=== PATIENT | female | born 1945 | race Caucasian/White ===

== ENCOUNTER 2022-12-09 18:31 | Observation (INO) ==
[2022-12-09] MEDS ORDERED: ASPIRIN 81 MG CHEW PO STA (18:44)
[2022-12-09 18:59] LABS: Basophils # (auto) 0.07 K/uL (0-0.2); Basophils % (auto) 0.8 %; Eosinophils # (auto) 0.26 K/uL (0-0.50); Eosinophils % (auto) 3.1 %; Hematocrit (blood only) 37.9 % (37.0-47.0); Hemoglobin 13.1 g/dl (12.0-16.0); Immature Granulocytes # (auto) 0.02 K/uL (0.01-0.20); Immature Granulocytes % (auto) 0.2 %; Lymphocytes # (auto) 2.47 K/uL (1.2-3.4); Lymphocytes % (auto) 29.4 %; Mean Corpuscular Hemoglobin 30.9 pg (25.0-34.0); Mean Corpuscular Hgb Conc 34.6 g/dL (32.0-36.0); Mean Corpuscular Volume 89.4 fL (80.0-100.0); Mean Platelet Volume 10.8 fL (9.4-12.4); Monocytes # (auto) 0.69 K/uL (0.11-0.59); Monocytes % (auto) 8.2 %; Neutrophils % (auto) 58.3 %; Platelet Count 220 K/uL (130-400); RDW Coefficient of Variation 14.4 % (11.5-14.5); RDW Standard Deviation 46.2 fL (36.4-46.3); Red Blood Count 4.24 M/uL (4.20-5.40); White Blood Count 8.41 K/ul (4.8-10.8)
--- NOTE | 2022-12-09 18:59 | Emergency Department Note ---
Impression & Plan Chest pain, Weakness ED Provider Note Provider: Edvin Bravo MD DATE OF SERVICE: 12/09/2022 CHIEF COMPLAINT: Chest discomfort HISTORY OF PRESENT ILLNESS: Patient is a 77-year-old female history of sick sinus syndrome status post dual pacemaker insertion, renovascular hypertension status post renal artery stent 2005, ankylosing spondylitis is, and hypothyroidism presenting here today with the onset around 530 at home while sitting of central chest discomfort and pain. Reports it felt like a charley horse. Maybe little bit of tightness at the base of her throat. Denies any other radiation of pain or nausea or vomiting. Denies shortness of breath. [place] warm but was not sweaty. States he had a brief episode like this at [place] time. Denies any recent exertional chest pain or fatigue symptoms. States she took an extra 81 mg aspirin in addition to the 81 mg aspirin she norm ally took. Given severity of symptoms came here for evaluation. States symptoms have resolved at this point but she feels somewhat washed out and weak. Denies lightheadedness or palpitations.She reports she did have pacemaker interrogation about a month ago and has a couple very brief episodes of atrial fibrillation is not on other anticoagulation. Denies numbness or focal weakness. Again denies active chest pain at this point. Denies a history of stents. PAST MEDICAL HISTORY: As noted above MEDICATIONS: Reviewed home medications include 81 mg aspirin FMH: Mother in her 90s had heart disease SOCIAL HISTORY: Non-smoker, PHYSICAL EXAM: GENERAL: alert and oriented in no acute distress on stretcher slightly fatigued appearing. Head: normocephalic and atraumatic EYES: No injection, discharge or icterus. NECK: Trachea midline. ENT: Mucous membranes pink and moist. LUNGS: Airway patent. No retractions. Breath sounds clear with good air entry bilaterally. HEART: Regular rate and rhythm. No chest wall tenderness ABDOMEN: Soft and non-tender, without guarding or rebound. SKIN: Acyanotic, warm, dry, without rashes EXTREMITIES: Without tenderness with mild bilateral pedal edema. Some varicosities noted without significant erythema NEUROLOGICAL: No focal deficits. No aphasia. No facial droop or slurred speech. Ambulatory. EK bpm atrially paced rhythm with a right bundle branch block and left anterior fascicular block. No PVC noted. No acute ST segment elevation. QTc 464. No priors for comparison CONTINUOUS CARDIAC MONITORING: was ordered and showed a heart rate of 60s-90s bpm in atrially paced rhythm Patient's laboratory studies and imaging reviewed. Differential includes Cardiac ischemia, aortic dissection, pulmonary embolism, pneumothorax, pneumonia, pericarditis, myocarditis, esophageal rupture, GERD, cholecystitis, pancreatitis, musculoskeletal, as well as other pathologies. IMPRESSION/MEDICAL DECISION MAKING: No active chest discomfort. EKG obtained but no priors available for comparison in our system or recently in the [facility] system. Previously had care at [place] but transferred to the [facility] cardiology system a year or 2 ago. Reviewed the last note from April. Not having recent exertional symptoms. The rest had symptoms today. Do question given her risk factors and description of the symptoms at this cardiac in nature. No STEMI on EKG today. Given 2 additional aspirin so she received full dose for today. Some chronic varicose veins and slight leg swelling but doubt this represents VTE/PE/aortic dis section. Benign abdomen and doubt acute intra-abdominal pathology. Will interrogate the pacemaker but denies palpitations symptoms and lower likelihood that this was a episode of significant arrhythmia. Records indicate that she had a normal coronary angiogram in 2008 and she states many years ago she had a stress test. Reports she is scheduled follow-up with cardiology next month. Heart score is elevated moderate risk. Feeling a little bit improved on reevaluation. Discussed with her risks and benefits and recommended further observation which she was agreeable to. Hospitalist contacted. DIAGNOSIS: Chest pain, weakness DISPOSITION: Hospitalist will evaluate Patient was agreeable with this plan. Past Med/Surg History Medical History Cardiac pacemaker Cervical cancer H/O varicose veins History of cervical cancer Hot flashes, menopausal Hot flashes, menopausal Hypertension Mitral valve regurgitation Osteoarthritis of midtarsal joint of right foot SSS (sick sinus syndrome) Varicose veins of both legs with edema Surgical History H/O knee surgery H/O laparoscopy Diagnostic H/O rectocele repair H/O: hysterectomy History of ankle surgery History of tubal ligation S/P placement of cardiac pacemaker Family History Father Colorectal cancer Brother Lung cancer Prostate cancer Uncle Lung cancer Paternal Other Hypertension Denies family history of Ovarian cancer Breast cancer Social History Smoking Status: Unknown if ever smoked Do You Dip or Chew Tobacco: No; Hx Alcohol Use: No Hx Substance Use: No Preferred Language: Croatian Feels Safe at Home: Yes Allergies Allergies Allergy/AdvReac Type Severity Reaction Status Date / Time hydrochlorothiazide Allergy Unknown Verified 12/09/22 19:15 metoprolol Allergy Unknown Verified 12/09/22 19:15 naproxen [From Naprosyn] Allergy Unknown Verified 12/09/22 19:15 Home Meds Home Medications Medication Instructions Recorded Confirmed calcium carbonate 600 mg-vitamin 1 cap PO DAILY 04/28/19 12/09/22 D3 5 mcg (200 unit) capsule multivit with 1 tab PO DAILY 04/28/19 12/09/22 [id number] 8 mg iron-400 mcg-300 mcg tablet (Centrum Silver Women) levothyroxine 25 mcg tablet 25 mcg PO DAILY 06/13/19 12/09/22 (Synthroid) amlodipine 5 mg tablet 5 mg PO DAILY 10/31/20 12/09/22 carvedilol 12.5 mg tablet 12.5 mg PO BID 10/31/20 12/09/22 aspirin 81 mg tablet,delayed 81 mg PO DAILY 12/09/22 12/09/22 release celecoxib 200 mg capsule 200 mg PO DAILY PRN Pain 12/09/22 12/09/22 lactobacillus combination no.4 3 0 mmu cells PO DAILY 12/09/22 12/09/22 billion cell capsule (Probiotic) Results & Data (ED) Vital Signs Vital Signs - 24 hr 12/09/22 18:35 12/09/22 18:35 12/09/22 18:43 Temperature 36.6 C Temperature Source Oral Pulse Rate 72 Pulse Rate from SpO2 Sensor Pulse Rhythm Regular Pulse Strength Normal Respiratory Rate 20 Respiratory Effort / Characteristics Non-Labored Spontaneous Non-Labored Spontaneous Respiratory Depth Normal Normal Respiratory Pattern Regular Blood Pressure 160/90 H Blood Pressure Mean 113 Blood Pressure Position Sitting Pulse Oximetry 95 Oxygen Delivery Method Room Air Room Air Sepsis Recent Fever Within 48 Hours No Sepsis New/Unexplained Change in Mental Status No Sepsis Action Taken by Nursing No Action Required 12/09/22 18:54 12/09/22 18:52 12/09/22 19:00 Temperature Temperature Source Pulse Rate 75 67 69 Pulse Rate from SpO2 Sensor 67 Pulse Rhythm Pulse Strength Respiratory Rate 21 22 Respiratory Effort / Characteristics Respiratory Depth Respiratory Pattern Blood Pressure Blood Pressure Mean Blood Pressure Position Pulse Oximetry 96 Oxygen Delivery Method Sepsis Recent Fever Within 48 Hours Sepsis New/Unexplained Change in Mental Status Sepsis Action Taken by Nursing 12/09/22 19:30 12/09/22 19:40 12/09/22 19:40 Temperature Temperature Source Pulse Rate 60 64 Pulse Rate from SpO2 Sensor Pulse Rhythm Pulse Strength Respiratory Rate 18 14 Respiratory Effort / Characteristics Respiratory Depth Respiratory Pattern Blood Pressure 142/73 H Blood Pressure Mean 96 Blood Pressure Position Pulse Oximetry Oxygen Delivery Method Sepsis Recent Fever Within 48 Hours Sepsis New/Unexplained Change in Mental Status Sepsis Action Taken by Nursing 12/09/22 20:00 12/09/22 20:30 12/09/22 21:00 Temperature Temperature Source Pulse Rate 60 63 60 Pulse Rate from SpO2 Sensor 63 60 Pulse Rhythm Pulse Strength Respiratory Rate 16 18 15 Respiratory Effort / Characteristics Respiratory Depth Respiratory Pattern Blood Pressure Blood Pressure Mean Blood Pressure Position Pulse Oximetry 94 95 Oxygen Delivery Method Sepsis Recent Fever Within 48 Hours Sepsis New/Unexplained Change in Mental Status Sepsis Action Taken by Nursing 12/09/22 21:30 12/09/22 22:00 12/09/22 22:30 Temperature Temperature Source Pulse Rate 66 60 60 Pulse Rate from SpO2 Sensor Pulse Rhythm Pulse Strength Respiratory Rate 12 14 13 Respiratory Effort / Characteristics Respiratory Depth Respiratory Pattern Blood Pressure 137/75 Blood Pressure Mean 95 Blood Pressure Position Pulse Oximetry 98 Oxygen Delivery Method Sepsis Recent Fever Within 48 Hours Sepsis New/Unexplained Change in Mental Status Sepsis Action Taken by Nursing Laboratory Data 12/09/22 18:42 12/09/22 18:42 Lab Results 12/09/22 12/09/22 12/09/22 Range/Units 18:42 18:42 18:42 WBC 8.41 (4.8-10.8) K/ul RBC 4.24 (4.20-5.40) M/uL Hgb 13.1 (12.0-16.0) g/dl Hct 37.9 (37.0-47.0) % MCV 89.4 (80.0-100.0) fL MCH 30.9 (25.0-34.0) pg MCHC 34.6 (32.0-36.0) g/dL RDW Std Deviation 46.2 (36.4-46.3) fL RDW Coeff of Aubrey 14.4 (11.5-14.5) % Plt Count 220 (130-400) K/uL MPV 10.8 (9.4-12.4) fL Immature Gran % (Auto) 0.2 % Neut % (Auto) 58.3 % Lymph % (Auto) 29.4 % Bonner % (Auto) 8.2 % Eos % (Auto) 3.1 % Baso % (Auto) 0.8 % Neut # (Auto) 4.90 (1.40-6.50) K/uL Lymph # (Auto) 2.47 (1.2-3.4) K/uL Bonner # (Auto) 0.69 H (0.11-0.59) K/uL Eos # (Auto) 0.26 (0-0.50) K/uL Baso # (Auto) 0.07 (0-0.2) K/uL Immature Gran # (Auto) 0.02 (0.01-0.20) K/uL PT 10.9 (9.0-12.0) Seconds INR 1.0 (0.9-1.1) APTT 27.9 (21.0-31.0) Seconds PTT Ratio 1.0 Sodium 140 (136-145) mmol/L Potassium 3.7 (3.5-5.1) mmol/L Chloride 104 (98-107) mmol/L Carbon Dioxide 28 (21-32) mmol/L Anion Gap 8 (3-11) BUN 13 (6-23) mg/dl Creatinine 0.88 (0.6-1.2) mg/dl Est Cr Clr Drug Dosing 58.1 ml/min Est GFR ( Amer) 74.0 ml/min Est GFR (Non-Af Amer) 63.8 ml/min BUN/Creatinine Ratio 14.8 (10-20) Glucose 124 H (70-99(Fasting)) mg/dl Estimat Average Glucose mg/dl Hemoglobin A1c (4.5-5.6) % Calcium 9.5 (8.6-10.3) mg/dl Magnesium 2.0 (1.7-2.4) mg/dl Total Bilirubin 0.7 (0.2-1.0) mg/dl AST 24 (13-39) U/L ALT 13 (7-52) U/L Alkaline Phosphatase 59 (34-104) U/L Troponin I High Sens 7.4 (0-14) pg/ml Total Protein 6.7 (6.0-8.3) gm/dl Albumin 4.0 (3.4-5.0) gm/dl Globulin 2.7 (2.5-4.0) gm/dl Albumin/Globulin Ratio 1.5 (0.9-2) Lipase 22 (11-82) U/L TSH (0.300-4.500) uIu/ml SARS-CoV-2, RNA, NAAT (NEGATIVE) 12/09/22 12/09/22 12/09/22 Range/Units 18:42 18:42 19:12 WBC (4.8-10.8) K/ul RBC (4.20-5.40) M/uL Hgb (12.0-16.0) g/dl Hct (37.0-47.0) % MCV (80.0-100.0) fL MCH (25.0-34.0) pg MCHC (32.0-36.0) g/dL RDW Std Deviation (36.4-46.3) fL RDW Coeff of Aubrey (11.5-14.5) % Plt Count (130-400) K/uL MPV (9.4-12.4) fL Immature Gran % (Auto) % Neut % (Auto) % Lymph % (Auto) % Bonner % (Auto) % Eos % (Auto) % Baso % (Auto) % Neut # (Auto) (1.40-6.50) K/uL Lymph # (Auto) (1.2-3.4) K/uL Bonner # (Auto) (0.11-0.59) K/uL Eos # (Auto) (0-0.50) K/uL Baso # (Auto) (0-0.2) K/uL Immature Gran # (Auto) (0.01-0.20) K/uL PT (9.0-12.0) Seconds INR (0.9-1.1) APTT (21.0-31.0) Seconds PTT Ratio Sodium (136-145) mmol/L Potassium (3.5-5.1) mmol/L Chloride (98-107) mmol/L Carbon Dioxide (21-32) mmol/L Anion Gap (3-11) BUN (6-23) mg/dl Creatinine (0.6-1.2) mg/dl Est Cr Clr Drug Dosing ml/min Est GFR ( Amer) ml/min Est GFR (Non-Af Amer) ml/min BUN/Creatinine Ratio (10-20) Glucose (70-99(Fasting)) mg/dl Estimat Average Glucose 123 mg/dl Hemoglobin A1c 5.9 H (4.5-5.6) % Calcium (8.6-10.3) mg/dl Magnesium (1.7-2.4) mg/dl Total Bilirubin (0.2-1.0) mg/dl AST (13-39) U/L ALT (7-52) U/L Alkaline Phosphatase (34-104) U/L Troponin I High Sens (0-14) pg/ml Total Protein (6.0-8.3) gm/dl Albumin (3.4-5.0) gm/dl Globulin (2.5-4.0) gm/dl Albumin/Globulin Ratio (0.9-2) Lipase (11-82) U/L TSH 3.538 (0.300-4.500) uIu/ml SARS-CoV-2, RNA, NAAT NEGATIVE (NEGATIVE) 12/09/22 Range/Units 20:03 WBC (4.8-10.8) K/ul RBC (4.20-5.40) M/uL Hgb (12.0-16.0) g/dl Hct (37.0-47.0) % MCV (80.0-100.0) fL MCH (25.0-34.0) pg MCHC (32.0-36.0) g/dL RDW Std Deviation (36.4-46.3) fL RDW Coeff of Aubrey (11.5-14.5) % Plt Count (130-400) K/uL MPV (9.4-12.4) fL Immature Gran % (Auto) % Neut % (Auto) % Lymph % (Auto) % Bonner % (Auto) % Eos % (Auto) % Baso % (Auto) % Neut # (Auto) (1.40-6.50) K/uL Lymph # (Auto) (1.2-3.4) K/uL Bonner # (Auto) (0.11-0.59) K/uL Eos # (Auto) (0-0.50) K/uL Baso # (Auto) (0-0.2) K/uL Immature Gran # (Auto) (0.01-0.20) K/uL PT (9.0-12.0) Seconds INR (0.9-1.1) APTT (21.0-31.0) Seconds PTT Ratio Sodium (136-145) mmol/L Potassium (3.5-5.1) mmol/L Chloride (98-107) mmol/L Carbon Dioxide (21-32) mmol/L Anion Gap (3-11) BUN (6-23) mg/dl Creatinine (0.6-1.2) mg/dl Est Cr Clr Drug Dosing ml/min Est GFR ( Amer) ml/min Est GFR (Non-Af Amer) ml/min BUN/Creatinine Ratio (10-20) Glucose (70-99(Fasting)) mg/dl Estimat Average Glucose mg/dl Hemoglobin A1c (4.5-5.6) % Calcium (8.6-10.3) mg/dl Magnesium (1.7-2.4) mg/dl Total Bilirubin (0.2-1.0) mg/dl AST (13-39) U/L ALT (7-52) U/L Alkaline Phosphatase (34-104) U/L Troponin I High Sens 7.5 (0-14) pg/ml Total Protein (6.0-8.3) gm/dl Albumin (3.4-5.0) gm/dl Globulin (2.5-4.0) gm/dl Albumin/Globulin Ratio (0.9-2) Lipase (11-82) U/L TSH (0.300-4.500) uIu/ml SARS-CoV-2, RNA, NAAT (NEGATIVE) Administered Medications Lactated Ringer's (Lr) 1,000 mls @ 50 mls/hr IV .Q20H ONE Stop: 12/10/22 17:11 Last Admin: 12/09/22 21:31 Dose: 50 mls/hr Documented By: ARS Discontinued Medications Acetaminophen (Acetaminophen 325 Mg Tab) 650 mg PO NOW STA Stop: 12/09/22 21:00 Last Admin: 12/09/22 21:31 Dose: 650 mg Documented By: SIERRA Amlodipine Besylate (Amlodipine Besylate 5 Mg Tab) 5 mg PO NOW ONE Stop: 12/09/22 21:00 Last Admin: 12/09/22 21:31 Dose: 5 mg Documented By: SIERRA Aspirin (Aspirin 81 Mg Chew) 162 mg PO NOW STA Stop: 12/09/22 18:45 Last Admin: 12/09/22 18:47 Dose: 162 mg Documented By: SIERRA Carvedilol (Carvedilol 12.5 Mg Tab) 12.5 mg PO NOW ONE Stop: 12/09/22 20:00 Last Admin: 12/09/22 21:38 Dose: Not Given Documented By: SIERRA Ioversol (Optiray 320 500ml) 113 ml IV ONCE ONE Stop: 12/09/22 21:36 Last Admin: 12/09/22 21:35 Dose: 113 ml Documented By: RICHARDSON Imaging Data Radiologist's Impression: Chest X-Ray 12/09/22 18:43 XR chest 1V portable CLINICAL HISTORY: Chest pain, nonspecific TECHNIQUE: Single frontal radiograph of the chest was obtained. Comparison: None available at the time of this dictation. FINDINGS: Dual lead pacemaker is seen. Calcified aortic knob is seen. The lungs are clear. No evidence of pleural effusion or pneumothorax. IMPRESSION: No acute chest disease. ACT 112: Negative or not required by law. Electronically signed by: Jeremy Reyez M.D. 12/09/2022 7:14 PM Chest CTA 12/09/22 21:00 Exam(s): CTA CHEST W/WO Contrast IV Amt: 113 ml optiray 320 EXAM: CT Angiography Chest Without and With Intravenous Contrast CLINICAL HISTORY: Reason for exam: cp, back pain. TECHNIQUE: Axial computed tomographic angiography images of the chest without and with intravenous contrast. CTDI is 15.3 mGy and DLP is 478.71 mGy-cm. Automated exposure control was utilized for the study. A dose lowering technique was utilized adhering to the principles of ALARA. MIP reconstructed images were created and reviewed. CONTRAST: Patient received 113 ml optiray 320 of IV contrast COMPARISON: None. FINDINGS: Pulmonary arteries: Unremarkable. No pulmonary embolism. Normal visualized pulmonary arteries with normal enhancement. Aorta: Mild atherosclerotic disease of aorta with no aneurysm or dissection. Lungs: Minimal bilateral lower lobe atelectasis otherwise normal lung parenchyma. No mass. Pleural space: Unremarkable. No significant effusion. No pneumothorax. Heart: Borderline cardiomegaly with mild coronary artery calcifications. No significant pericardial effusion. No evidence of RV dysfunction. Bones/joints: No acute fracture. No dislocation. Soft tissues: Unremarkable. Lymph nodes: Unremarkable. No enlarged lymph nodes. Tubes, lines and devices: Left-sided pacemaker in place. Other findings: Multilevel degenerative disease of the spine. IMPRESSION: 1. No pulmonary embolus or aortic dissection. 2. Mild bilateral lower lobe atelectasis otherwise no acute cardiopulmonary disease. 3. No pleural effusion or pneumothorax. Electronically signed by: Jenny Aragon MD 12/09/22 22:[address] 12/09/22 21:00 Exam(s): CT HEAD Without Contrast EXAM: CT Head Without Intravenous Contrast CLINICAL HISTORY: Reason for exam: bautista. TECHNIQUE: Axial computed tomography images of the head/brain without intravenous contrast. CTDI is 38.95 mGy and DLP is 546.36 mGy-cm. Automated exposure control was utilized for the study. A dose lowering technique was utilized adhering to the principles of ALARA. COMPARISON: None. FINDINGS: Brain: Mild generalized brain atrophy. Slight decreased attenuation within the deep white matter compatible with mild microangiopathic white matter disease. No hemorrhage. Ventricles: Unremarkable. No ventriculomegaly. Bones/joints: Unremarkable. No acute fracture. Soft tissues: Unremarkable. Sinuses: Unremarkable as visualized. No acute sinusitis. Mastoid air cells: Unremarkable as visualized. No mastoid effusion. IMPRESSION: Chronic changes as described. No acute intracranial hemorrhage or space-occupying lesion. Electronically signed by: Jenny Aragon MD 12/09/22 22:10 PM Discharge Plan Visit Data Chief Complaint: Chest Pain Stated Complaint: CHEST PAIN, ED Provider: Edvin Bravo Discharge Problem: Chest pain, Weakness Patient Disposition: Being Evaluated by Hospitalist
--- NOTE | 2022-12-09 19:15 | XRay Report ---
XR chest 1V portable CLINICAL HISTORY: Chest pain, nonspecific TECHNIQUE: Single frontal radiograph of the chest was obtained. Comparison: None available at the time of this dictation. FINDINGS: Dual lead pacemaker is seen. Calcified aortic knob is seen. The lungs are clear. No evidence of pleur al effusion or pneumothorax. IMPRESSION: No acute chest disease. ACT 112: Negative or not required by law. Electronically signed by: Jeremy Reyez M.D. 12/09/2022 7:14 PM
[2022-12-09 19:16] LABS: Albumin Globulin Ratio 1.5 (0.9-2); BUN Creatinine Ratio 14.8 (10-20); Bilirubin,Total 0.7 mg/dl (0.2-1.0); Calcium 9.5 mg/dl (8.6-10.3); Creatinine Clr Calc Pharmacy 58.1 ml/min; Est GFR (Non-African American) 63.8 ml/min; Globulin 2.7 gm/dl (2.5-4.0); Potassium 3.7 mmol/L (3.5-5.1); Total Protein 6.7 gm/dl (6.0-8.3)
[2022-12-09 19:22] LABS: Troponin I High Sensitivity 7.4 pg/ml (0-14)
[2022-12-09 19:40] LABS: Partial Thromboplastin Time 27.9 Seconds (21.0-31.0); Prothrombin Time 10.9 Seconds (9.0-12.0)
[2022-12-09] MEDS ORDERED: carvediloL 12.5 MG TAB PO ONE (19:59)
--- NOTE | 2022-12-09 20:07 | History & Physical Report ---
Date of Service December 09, 2022 Assessment & Plan (1) Chest pain: (2) SSS (sick sinus syndrome): (3) Cardiac pacemaker: (4) Hypertension: (5) Mitral valve regurgitation: (6) Hypothyroidism: Plan This is a 77-year-old female with PMH of sick sinus syndrome status post pacemaker placement, renovascular hypertension s/p right artery angioplasty in 2005, moderate mitral insufficiency, ankylosing spondylitis, hypothyroidism and other medical problems listed below who presents with chest pain that started this evening prior to arrival. Patient seen in collaboration with Dr. Chavez. Please see addendum for assessment and plan details. History of Present Illness Chief Complaint: Chest pain Primary Care Provider: Ike Dutta DO This is a 77-year-old female with PMH of sick sinus syndrome status post pacemaker placement, renovascular hypertension s/p right artery angioplasty in 2005, moderate mitral insufficiency, ankylosing spondylitis, hypothyroidism and other medical problems listed below who presents with chest pain that started this evening prior to arrival. States that pain developed around 530 this evening while she was sitting still and describes pain as central discomfort that radiated towards her back and felt like a charley horse/cramp and resolved after 30 minutes. Means a sense of warmth during episode of pain but denies any diaphoresis, nausea, vomiting, near syncope or shortness of breath. Had 1 similar episode this past winter but not since then. Did take an extra aspirin at home and came into ED for further evaluation at which point chest pain had resolved but patient still feels residually fatigued and generally weak. Denies any fever, chills, lightheadedness, headache, wheezing, shortness of breath, nausea, vomiting, dumping dysuria, diarrhea constipation. No recent medication changes. Per chart review, normal coronary angiography and 2009. Also had a recent pacemaker interrogation with brief episodes of atrial fibrillation but is being monitored by cardiology for any future or prolonged episodes of PAF and will consider anticoagulation at that time. Follows with Dr. Adan of [facility] cardiology and primary care is based in [place]. Allergies Allergy/AdvReac Type Severity Reaction Status Date / Time hydrochlorothiazide Allergy Unknown Verified 12/09/22 19:15 metoprolol Allergy Unknown Verified 12/09/22 19:15 naproxen [From Naprosyn] Allergy Unknown Verified 12/09/22 19:15 Home Medications Medication Instructions Recorded Confirmed Type calcium carbonate 600 mg-vitamin 1 cap PO DAILY 04/28/19 12/09/22 History D3 5 mcg (200 unit) capsule multivit with 1 tab PO DAILY 04/28/19 12/09/22 History [id number]-lutein 8 mg iron-400 mcg-300 mcg tablet (Centrum Silver Women) levothyroxine 25 mcg tablet 25 mcg PO DAILY 06/13/19 12/09/22 History (Synthroid) amlodipine 5 mg tablet 5 mg PO DAILY 10/31/20 12/09/22 History carvedilol 12.5 mg tablet 12.5 mg PO BID 10/31/20 12/09/22 History aspirin 81 mg tablet,delayed 81 mg PO DAILY 12/09/22 12/09/22 History release celecoxib 200 mg capsule 200 mg PO DAILY PRN Pain 12/09/22 12/09/22 History lactobacillus combination no.4 3 0 mmu cells PO DAILY 12/09/22 12/09/22 History billion cell capsule (Probiotic) Past Med/Surg History Medical History Cardiac pacemaker Cervical cancer H/O varicose veins History of cervical cancer Hot flashes, menopausal Hot flashes, menopausal Hypertension Mitral valve regurgitation Osteoarthritis of midtarsal joint of right foot SSS (sick sinus syndrome) Varicose veins of both legs with edema Surgical History H/O knee surgery H/O laparoscopy Diagnostic H/O rectocele repair H/O: hysterectomy History of ankle surgery History of tubal ligation S/P placement of cardiac pacemaker Family History Father Colorectal cancer Brother Lung cancer Prostate cancer Uncle Lung cancer Paternal Other Hypertension Denies family history of Ovarian cancer Breast cancer Social History Smoking Status: Unknown if ever smoked Do You Dip or Chew Tobacco: No; Hx Alcohol Use: No Hx Substance Use: No Preferred Language: Maori Feels Safe at Home: Yes Review of Systems Review of Systems: At least ten systems reviewed and negative except as noted in the HPI. Physical Exam Physical Exam: General Appearance: WD/WN, vitals as above, NAD, sitting up in bed, pleasant, conversing easily Head: normocephalic, atraumatic Eyes: normal inspection, PERRL, conjunctivae normal, anicteric sclerae ENT: external ear and nose normal, oropharynx normal Neck: normal visual inspection, trachea midline, no thyromegaly Respiratory: normal respiratory effort, lungs clear to auscultation, no wheeze, rales, rhonchi. No accessory muscle use Cardiovascular: regular rate, rhythm, no murmur, normal peripheral pulses. Vessels: no JVD Chest: normal inspection of chest Abdomen/GI: normal bowel sounds, soft, nontender, no hepatosplenomegaly Extremities/Musculoskeletal: no cyanosis or clubbing, extremities motor strength 5/5. + Trace edema R>L BLE 2/2 chronic venous changes Neurologic: PERRL, EOMI, accommodation nl, no face palsy, no dysarthria, CN's II-XI intact bilaterally and moves all extremities Psychiatric: A+Ox3, euthymic affect Skin: no rashes, normal color, warm/dry Results & Data Results & Data Vital Signs (Past 12 Hours) Vital Signs Temp Pulse Resp BP Pulse Ox O2 Del Method 12/09/22 18:54 75 12/09/22 18:43 Room Air 12/09/22 18:35 36.6 C 72 20 160/90 H 95 Room Air Laboratory Results Short CBC 12/09/22 Range/Units 18:42 WBC 8.41 (4.8-10.8) K/ul Hgb 13.1 (12.0-16.0) g/dl Hct 37.9 (37.0-47.0) % Plt Count 220 (130-400) K/uL BMP 12/09/22 18:42 Sodium 140 Potassium 3.7 Chloride 104 Carbon Dioxide 28 BUN 13 Creatinine 0.88 Glucose 124 H Calcium 9.5 Liver Function 12/09/22 Range/Units 18:42 Total Bilirubin 0.7 (0.2-1.0) mg/dl AST 24 (13-39) U/L ALT 13 (7-52) U/L Alkaline Phosphatase 59 (34-104) U/L Albumin 4.0 (3.4-5.0) gm/dl Diagnostic Findings Chest X-Ray 12/09/22 18:43 XR chest 1V portable CLINICAL HISTORY: Chest pain, nonspecific TECHNIQUE: Single frontal radiograph of the chest was obtained. Comparison: None available at the time of this dictation. FINDINGS: Dual lead pacemaker is seen. Calcified aortic knob is seen. The lungs are clear. No evidence of pleural effusion or pneumothorax. IMPRESSION: No acute chest disease. ACT 112: Negative or not required by law. Electronically signed by: Jeremy Reyez M.D. 12/09/2022 7:14 PM ECG Additional Comments: EKG reviewed: atrially paced rhythm at 90 bpm with a right bundle branch block and left anterior fascicular block. No acute ST changes Supervising Physician Co-Signing Physician Notes IM ATTENDING : Patient seen and examined. History obtained from patient and records. Preceding documentation by Ms. Yola Jeong PA-C reviewed. In addition, patient complaining of headache symptoms. CT head: Chronic changes as described. No acute intracranial hemorrhage or space-occupying lesion. CT chest: 1. No pulmonary embolus or aortic dissection. 2. Mild bilateral lower lobe atelectasis otherwise no acute cardiopulmonary disease. 3. No pleural effusion or pneumothorax. FINAL ASSESSMENT AND PLAN as follows : Chest pain rule out ACS SSS sp PPM History PAF as per records Hypertension, elevated upon arrival at the ER hx trace mitral regurgitation on recent outpatient echo from 2021 Pulmonary hypertension GERD status post surgery Renal artery stenosis status post stent placement Hyperglycemia secondary to prediabetes, hemoglobin A1c noted to be 5.9 Hypothyroidism, euthyroid as of today's TSH History ankylosing spondylitis OBS PCU Aspirin for CAD prevention Follow troponin, IV heparin if with subsequent elevation Cardiology consult Re: Chest pain N.p.o. until seen by cardiology in anticipation for ischemic work-up DVT prophylaxis. Alanna benderu Full code Text document was generated using [employer] voice recognition software. It may contain grammatical or spelling errors. Kindly contact undersigned for clarification of any documentation item in question.
[2022-12-09 20:57] LABS: Estimated Average Glucose 123 mg/dl; Hemoglobin A1C 5.9 % (4.5-5.6)
[2022-12-09] MEDS ORDERED: ACETAMINOPHEN 325 MG TAB PO STA (20:59)
[2022-12-09] MEDS ORDERED: amLODIPine BESYLATE 5 MG TAB PO ONE (20:59)
[2022-12-09] MEDS ORDERED: LACTATED RINGER'S 1,000 ML IV ONE (21:12)
[2022-12-09] MEDS ORDERED: OPTIRAY 320 500ml IV ONE (21:35)
--- NOTE | 2022-12-09 22:11 | CT Scan Report ---
Exam(s): CT HEAD Without Contrast EXAM: CT Head Without Intravenous Contrast CLINICAL HISTORY: Reason for exam: bautista. TECHNIQUE: Axial computed tomography images of the head/brain without intravenous contrast. CTDI is 38.95 mGy and DLP is 546.36 mGy-cm. Automated exposure control was utilized for the study. A dose lowering technique was utilized adhering to the principles of ALARA. COMPARISON: None. FINDINGS: Brain: Mild generalized brain atrophy. Slight decreased attenuation within the deep white matter compatible with mild microangiopathic white matter disease. No hemorrhage. Ventricles: Unremarkable. No ventriculomegaly. Bones/joints: Unremarkable. No acute fracture. Soft tissues: Unremarkable. Sinuses: Unremarkable as visualized. No acute sinusitis. Mastoid air cells: Unremarkable as visualized. No mastoid effusion. IMPRESSION: Chronic changes as described. No acute intracranial hemorrhage or space-occupying lesion. Electronically signed by: Jenny Aragon MD 12/09/22 22:10 PM
--- NOTE | 2022-12-09 22:23 | CT Scan Report ---
Exam(s): CTA CHEST W/WO Contrast IV Amt: 113 ml optiray 320 EXAM: CT Angiography Chest Without and With Intravenous Contrast CLINICAL HISTORY: Reason for exam: cp, back pain. TECHNIQUE: Axial computed tomographic angiography images of the chest without and with intravenous contrast. CTDI is 15.3 mGy and DLP is 478.71 mGy-cm. Automated exposure control was utilized for the study. A dose lowering technique was utilized adhering to the principles of ALARA. MIP reconstructed images were created and reviewed. CONTRAST: Patient received 113 ml optiray 320 of IV contrast COMPARISON: None. FINDINGS: Pulmonary arteries: Unremarkable. No pulmonary embolism. Normal visualized pulmonary arteries with normal enhancement. Aorta: Mild atherosclerotic disease of aorta with no aneurysm or dissection. Lungs: Minimal bilateral lower lobe atelectasis otherwise normal lung parenchyma. No mass. Pleural space: Unremarkable. No significant effusion. No pneumothorax. Heart: Borderline cardiomegaly with mild coronary artery calcifications. No significant pericardial effusion. No evidence of RV dysfunction. Bones/joints: No acute fracture. No dislocation. Soft tissues: Unremarkable. Lymph nodes: Unremarkable. No enlarged lymph nodes. Tubes, lines and devices: Left-sided pacemaker in place. Other findings: Multilevel degenerative disease of the spine. IMPRESSION: 1. No pulmonary embolus or aortic dissection. 2. Mild bilateral lower lobe atelectasis otherwise no acute cardiopulmonary disease. 3. No pleural effusion or pneumothorax. Electronically signed by: Jenny Aragon MD 12/09/22 22:22 PM
[2022-12-09] MEDS ORDERED: ACETAMINOPHEN 325 MG TAB PO PRN (23:44)
[2022-12-09] MEDS ORDERED: PROMETHAZINE HCL 12.5 MG in SODIUM CHLORIDE 0.9% 50 ML IV PRN (23:44)
[2022-12-09] MEDS ORDERED: NITROGLYCERIN SL 0.4 MG/TAB TAB SL PRN (23:44)
[2022-12-09] MEDS ORDERED: traMADol HCL 50 MG TABLET PO PRN (23:44)
[2022-12-09] MEDS ORDERED: LORazepam 0.5 MG TAB PO PRN (23:44)
[2022-12-09] MEDS ORDERED: MoRPHine SULFATE 4 MG/ML 1 ML CARP\\VIAL IV PRN (23:44)
[2022-12-10 06:19] LABS: Basophils # (auto) 0.07 K/uL (0-0.2); Basophils % (auto) 1.1 %; Eosinophils # (auto) 0.27 K/uL (0-0.50); Eosinophils % (auto) 4.4 %; Hematocrit (blood only) 35.9 % (37.0-47.0); Hemoglobin 12.4 g/dl (12.0-16.0); Immature Granulocytes # (auto) 0.02 K/uL (0.01-0.20); Immature Granulocytes % (auto) 0.3 %; Lymphocytes # (auto) 1.97 K/uL (1.2-3.4); Lymphocytes % (auto) 32.1 %; Mean Corpuscular Hemoglobin 30.8 pg (25.0-34.0); Mean Corpuscular Hgb Conc 34.5 g/dL (32.0-36.0); Mean Corpuscular Volume 89.1 fL (80.0-100.0); Mean Platelet Volume 10.8 fL (9.4-12.4); Monocytes # (auto) 0.62 K/uL (0.11-0.59); Monocytes % (auto) 10.1 %; Neutrophils # (auto) 3.18 K/uL (1.40-6.50); Platelet Count 192 K/uL (130-400); RDW Coefficient of Variation 14.2 % (11.5-14.5); RDW Standard Deviation 46.1 fL (36.4-46.3); Red Blood Count 4.03 M/uL (4.20-5.40); White Blood Count 6.13 K/ul (4.8-10.8)
[2022-12-10] MEDS ORDERED: LEVOTHYROXINE SODIUM 25 MCG TABLET PO SCH (06:30)
[2022-12-10 06:37] LABS: BUN Creatinine Ratio 18.2 (10-20); Calcium 8.4 mg/dl (8.6-10.3); Chol HDL Ratio 2.4 (0-5); Creatinine Clr Calc Pharmacy 77.4 ml/min; Est GFR (African American) 99.5 ml/min; Est GFR (Non-African American) 85.8 ml/min; Potassium 3.5 mmol/L (3.5-5.1)
[2022-12-10 06:42] LABS: Troponin I High Sensitivity 8.5 pg/ml (0-14)
[2022-12-10 06:46] LABS: Partial Thromboplastin Time 29.1 Seconds (21.0-31.0)
[2022-12-10] MEDS ORDERED: ASPIRIN 81 MG ECTAB PO SCH (09:00)
[2022-12-10] MEDS ORDERED: ADVANCED PROBIOTIC 1250 MG CAPSULE PO SCH (09:00)
[2022-12-10] MEDS ORDERED: CEROVITE ADV FORMULA TAB PO SCH (09:00)
[2022-12-10] MEDS ORDERED: ENOXAPARIN INJ 40 MG/0.4 ML SYR SQ SCH (09:00)
[2022-12-10] MEDS ORDERED: carvediloL 12.5 MG TAB PO SCH (09:00)
[2022-12-10] MEDS ORDERED: POTASSIUM CHLORIDE CRTAB 20 MEQ TABCR PO STA (09:49)
--- NOTE | 2022-12-10 09:50 | Hospitalist Progress Note ---
Date of Service December 10, 2022 Assessment & Plan (1) Chest pain: (2) SSS (sick sinus syndrome): (3) Cardiac pacemaker: (4) Hypertension: (5) Mitral valve regurgitation: (6) Hypothyroidism: Plan This is a 77-year-old female with PMH of sick sinus syndrome status post pacemaker placement, renovascular hypertension s/p right artery angioplasty in 2005, moderate mitral insufficiency, ankylosing spondylitis, hypothyroidism and other medical problems listed below who presents with chest pain that started this evening prior to arrival. In addition, patient complaining of headache symptoms. CT head: Chronic changes as described. No acute intracranial hemorrhage or space-occupying lesion. CT chest: 1. No pulmonary embolus or aortic dissection. 2. Mild bilateral lower lobe atelectasis otherwise no acute cardiopulmonary disease. 3. No pleural effusion or pneumothorax. FINAL ASSESSMENT AND PLAN as follows : Chest pain rule out ACS SSS sp PPM History PAF as per records Hypertension, elevated upon arrival at the ER hx trace mitral regurgitation on recent outpatient echo from 2021 Pulmonary hypertension Cardiology consulted and echo obtained Troponin negative No ischemic ECG changes Preliminary review of bedside 2D transthoracic echocardiogram reveals normal wall motion. Currently pt is feeling well and denies any more chest pain. Recommend further ischemic evaluation with Lexiscan nuclear stress test. Patient unlikely to achieve target heart rate due to 100% atrial pacing. Abdominal aortic duplex will be performed for further evaluation abdominal bruit.- Both tests can be performed as outpt. Pt agreeable with the plan. PCP follow up also arranged. GERD status post surgery Renal artery stenosis status post stent placement Hyperglycemia secondary to prediabetes, hemoglobin A1c noted to be 5.9 Hypothyroidism, euthyroid as of today's TSH History ankylosing spondylitis Admission and Anticipated Discharge Date Admission Date: December 09, 2022 Subjective Pt seen in follow up of chest pain Currently laying in bed, in no acute distress Denies any more chest pain shortness of breath dizziness Reports feeling well and able to ambulate without any issues as well She was seen by cardiology, and plan is for further work-up/stress test as outpatient. Patient's present at the bedside. Review of Systems Review of Systems: All systems reviewed & are unremarkable except as noted in Subjective Physical Exam Physical Exam: General Appearance:WD/WN, F in NAD, sitting up in bed, pleasant, conversing easily Head: normocephalic, atraumatic Eyes:normal inspection, PERRL, conjunctivae normal, anicteric sclerae ENT: oropharynx normal Neck: normal visual inspection Respiratory:normal respiratory effort, lungs clear to auscultation, no wheeze, rales, rhonchi. Cardiovascular: regular rate, rhythm, no murmur, normal peripheral pulses. Vessels: no JVD Chest: normal inspection of chest Abdomen/GI: normal bowel sounds, soft, nontender Extremities/Musculoskeletal: moves extremities Neurologic: PERRL, EOMI, no face palsy, speech fluent, moves all extremities Psychiatric:A+Ox3, euthymic affect Skin: no rashes, normal color, warm/dry Results & Data Results & Data Vital Signs (Past 12 Hours) Vital Signs Temp Pulse Pulse Resp BP BP Pulse Ox 12/10/22 08:00 36.5 C 74 16 108/74 97 12/10/22 03:44 36.5 C 63 18 123/74 95 12/09/22 23:50 97 H 12/09/22 23:50 36.6 C 60 15 165/80 H 97 12/09/22 23:44 36.6 C 60 15 165/80 H 97 12/09/22 22:30 60 13 137/75 98 12/09/22 22:00 60 14 O2 Del Method 12/10/22 08:00 Room Air 12/10/22 03:44 Room Air 12/09/22 23:50 12/09/22 23:50 Room Air 12/09/22 23:44 Room Air 12/09/22 22:30 12/09/22 22:00 Laboratory Results 12/10/22 12/10/22 12/10/22 Range/Units 05:27 05: 05:27 WBC 6.13 (4.8-10.8) K/ul RBC 4.03 L (4.20-5.40) M/uL Hgb 12.4 (12.0-16.0) g/dl Hct 35.9 L (37.0-47.0) % MCV 89.1 (80.0-100.0) fL MCH 30.8 (25.0-34.0) pg MCHC 34.5 (32.0-36.0) g/dL RDW Std Deviation 46.1 (36.4-46.3) fL RDW Coeff of Aubrey 14.2 (11.5-14.5) % Plt Count 192 (130-400) K/uL MPV 10.8 (9.4-12.4) fL Immature Gran % (Auto) 0.3 % Neut % (Auto) 52.0 % Lymph % (Auto) 32.1 % [place] % (Auto) 10.1 % Eos % (Auto) 4.4 % Baso % (Auto) 1.1 % Neut # (Auto) 3.18 (1.40-6.50) K/uL Lymph # (Auto) 1.97 (1.2-3.4) K/uL [place] # (Auto) 0.62 H (0.11-0.59) K/uL Eos # (Auto) 0.27 (0-0.50) K/uL Baso # (Auto) 0.07 (0-0.2) K/uL Immature Gran # (Auto) 0.02 (0.01-0.20) K/uL PT (9.0-12.0) Seconds INR (0.9-1.1) APTT 29.1 (21.0-31.0) Seconds PTT Ratio 1.0 Sodium 141 (136-145) mmol/L Potassium 3.5 (3.5-5.1) mmol/L Chloride 107 (98-107) mmol/L Carbon Dioxide 28 (21-32) mmol/L Anion Gap 6 (3-11) BUN 12 (6-23) mg/dl Creatinine 0.66 (0.6-1.2) mg/dl Est Cr Clr Drug Dosing 77.4 ml/min Est GFR ( Amer) 99.5 ml/min Est GFR (Non-Af Amer) 85.8 ml/min BUN/Creatinine Ratio 18.2 (10-20) Glucose 79 (70-99(Fasting)) mg/dl Estimat Average Glucose mg/dl Hemoglobin A1c (4.5-5.6) % Calcium 8.4 L (8.6-10.3) mg/dl Magnesium (1.7-2.4) mg/dl Total Bilirubin (0.2-1.0) mg/dl AST (13-39) U/L ALT (7-52) U/L Alkaline Phosphatase (34-104) U/L Troponin I High Sens 8.5 (0-14) pg/ml Total Protein (6.0-8.3) gm/dl Albumin (3.4-5.0) gm/dl Globulin (2.5-4.0) gm/dl Albumin/Globulin Ratio (0.9-2) Triglycerides 49 (0-150) mg/dl Cholesterol 150 (0-200) mg/dl LDL Cholesterol, Calc 78 mg/dl VLDL Cholesterol, Calc 10 (0-30) mg/dl HDL Cholesterol 62 mg/dl Cholesterol/HDL Ratio 2.4 (0-5) Lipase (11-82) U/L TSH (0.300-4.500) uIu/ml SARS-CoV-2, RNA, NAAT (NEGATIVE) 12/09/22 12/09/22 12/09/22 Range/Units 20:03 19:12 18:42 WBC (4.8-10.8) K/ul RBC (4.20-5.40) M/uL Hgb (12.0-16.0) g/dl Hct (37.0-47.0) % MCV (80.0-100.0) fL MCH (25.0-34.0) pg MCHC (32.0-36.0) g/dL RDW Std Deviation (36.4-46.3) fL RDW Coeff of Aubrey (11.5-14.5) % Plt Count (130-400) K/uL MPV (9.4-12.4) fL Immature Gran % (Auto) % Neut % (Auto) % Lymph % (Auto) % [place] % (Auto) % Eos % (Auto) % Baso % (Auto) % Neut # (Auto) (1.40-6.50) K/uL Lymph # (Auto) (1.2-3.4) K/uL [place] # (Auto) (0.11-0.59) K/uL Eos # (Auto) (0-0.50) K/uL Baso # (Auto) (0-0.2) K/uL Immature Gran # (Auto) (0.01-0.20) K/uL PT (9.0-12.0) Seconds INR (0.9-1.1) APTT (21.0-31.0) Seconds PTT Ratio Sodium (136-145) mmol/L Potassium (3.5-5.1) mmol/L Chloride (98-107) mmol/L Carbon Dioxide (21-32) mmol/L Anion Gap (3-11) BUN (6-23) mg/dl Creatinine (0.6-1.2) mg/dl Est Cr Clr Drug Dosing ml/min Est GFR ( Amer) ml/min Est GFR (Non-Af Amer) ml/min BUN/Creatinine Ratio (10-20) Glucose (70-99(Fasting)) mg/dl Estimat Average Glucose 123 mg/dl Hemoglobin A1c 5.9 H (4.5-5.6) % Calcium (8.6-10.3) mg/dl Magnesium (1.7-2.4) mg/dl Total Bilirubin (0.2-1.0) mg/dl AST (13-39) U/L ALT (7-52) U/L Alkaline Phosphatase (34-104) U/L Troponin I High Sens 7.5 (0-14) pg/ml Total Protein (6.0-8.3) gm/dl Albumin (3.4-5.0) gm/dl Globulin (2.5-4.0) gm/dl Albumin/Globulin Ratio (0.9-2) Triglycerides (0-150) mg/dl Cholesterol (0-200) mg/dl LDL Cholesterol, Calc mg/dl VLDL Cholesterol, Calc (0-30) mg/dl HDL Cholesterol mg/dl Cholesterol/HDL Ratio (0-5) Lipase (11-82) U/L TSH (0.300-4.500) uIu/ml SARS-CoV-2, RNA, NAAT NEGATIVE (NEGATIVE) 12/09/22 12/09/22 12/09/22 Range/Units 18:42 18:42 18:42 WBC (4.8-10.8) K/ul RBC (4.20-5.40) M/uL Hgb (12.0-16.0) g/dl Hct (37.0-47.0) % MCV (80.0-100.0) fL MCH (25.0-34.0) pg MCHC (32.0-36.0) g/dL RDW Std Deviation (36.4-46.3) fL RDW Coeff of Aubrey (11.5-14.5) % Plt Count (130-400) K/uL MPV (9.4-12.4) fL Immature Gran % (Auto) % Neut % (Auto) % Lymph % (Auto) % [place] % (Auto) % Eos % (Auto) % Baso % (Auto) % Neut # (Auto) (1.40-6.50) K/uL Lymph # (Auto) (1.2-3.4) K/uL [place] # (Auto) (0.11-0.59) K/uL Eos # (Auto) (0-0.50) K/uL Baso # (Auto) (0-0.2) K/uL Immature Gran # (Auto) (0.01-0.20) K/uL PT 10.9 (9.0-12.0) Seconds INR 1.0 (0.9-1.1) APTT 27.9 (21.0-31.0) Seconds PTT Ratio 1.0 Sodium 140 (136-145) mmol/L Potassium 3.7 (3.5-5.1) mmol/L Chloride 104 (98-107) mmol/L Carbon Dioxide 28 (21-32) mmol/L Anion Gap 8 (3-11) BUN 13 (6-23) mg/dl Creatinine 0.88 (0.6-1.2) mg/dl Est Cr Clr Drug Dosing 58.1 ml/min Est GFR ( Amer) 74.0 ml/min Est GFR (Non-Af Amer) 63.8 ml/min BUN/Creatinine Ratio 14.8 (10-20) Glucose 124 H (70-99(Fasting)) mg/dl Estimat Average Glucose mg/dl Hemoglobin A1c (4.5-5.6) % Calcium 9.5 (8.6-10.3) mg/dl Magnesium 2.0 (1.7-2.4) mg/dl Total Bilirubin 0.7 (0.2-1.0) mg/dl AST 24 (13-39) U/L ALT 13 (7-52) U/L Alkaline Phosphatase 59 (34-104) U/L Troponin I High Sens 7.4 (0-14) pg/ml Total Protein 6.7 (6.0-8.3) gm/dl Albumin 4.0 (3.4-5.0) gm/dl Globulin 2.7 (2.5-4.0) gm/dl Albumin/Globulin Ratio 1.5 (0.9-2) Triglycerides (0-150) mg/dl Cholesterol (0-200) mg/dl LDL Cholesterol, Calc mg/dl VLDL Cholesterol, Calc (0-30) mg/dl HDL Cholesterol mg/dl Cholesterol/HDL Ratio (0-5) Lipase 22 (11-82) U/L TSH 3.538 (0.300-4.500) uIu/ml SARS-CoV-2, RNA, NAAT (NEGATIVE) 12/09/22 Range/Units 18:42 WBC 8.41 (4.8-10.8) K/ul RBC 4.24 (4.20-5.40) M/uL Hgb 13.1 (12.0-16.0) g/dl Hct 37.9 (37.0-47.0) % MCV 89.4 (80.0-100.0) fL MCH 30.9 (25.0-34.0) pg MCHC 34.6 (32.0-36.0) g/dL RDW Std Deviation 46.2 (36.4-46.3) fL RDW Coeff of Aubrey 14.4 (11.5-14.5) % Plt Count 220 (130-400) K/uL MPV 10.8 (9.4-12.4) fL Immature Gran % (Auto) 0.2 % Neut % (Auto) 58.3 % Lymph % (Auto) 29.4 % [place] % (Auto) 8.2 % Eos % (Auto) 3.1 % Baso % (Auto) 0.8 % Neut # (Auto) 4.90 (1.40-6.50) K/uL Lymph # (Auto) 2.47 (1.2-3.4) K/uL [place] # (Auto) 0.69 H (0.11-0.59) K/uL Eos # (Auto) 0.26 (0-0.50) K/uL Baso # (Auto) 0.07 (0-0.2) K/uL Immature Gran # (Auto) 0.02 (0.01-0.20) K/uL PT (9.0-12.0) Seconds INR (0.9-1.1) APTT (21.0-31.0) Seconds PTT Ratio Sodium (136-145) mmol/L Potassium (3.5-5.1) mmol/L Chloride (98-107) mmol/L Carbon Dioxide (21-32) mmol/L Anion Gap (3-11) BUN (6-23) mg/dl Creatinine (0.6-1.2) mg/dl Est Cr Clr Drug Dosing ml/min Est GFR ( Amer) ml/min Est GFR (Non-Af Amer) ml/min BUN/Creatinine Ratio (10-20) Glucose (70-99(Fasting)) mg/dl Estimat Average Glucose mg/dl Hemoglobin A1c (4.5-5.6) % Calcium (8.6-10.3) mg/dl Magnesium (1.7-2.4) mg/dl Total Bilirubin (0.2-1.0) mg/dl AST (13-39) U/L ALT (7-52) U/L Alkaline Phosphatase (34-104) U/L Troponin I High Sens (0-14) pg/ml Total Protein (6.0-8.3) gm/dl Albumin (3.4-5.0) gm/dl Globulin (2.5-4.0) gm/dl Albumin/Globulin Ratio (0.9-2) Triglycerides (0-150) mg/dl Cholesterol (0-200) mg/dl LDL Cholesterol, Calc mg/dl VLDL Cholesterol, Calc (0-30) mg/dl HDL Cholesterol mg/dl Cholesterol/HDL Ratio (0-5) Lipase (11-82) U/L TSH (0.300-4.500) uIu/ml SARS-CoV-2, RNA, NAAT (NEGATIVE) Medications Administered Current Inpatient Medications Acetaminophen (Acetaminophen 325 Mg Tab) 650 mg PO Q4H PRN PRN Reason: Pain or Fever Stop: 01/08/23 23:43 Amlodipine Besylate (Amlodipine Besylate 5 Mg Tab) 5 mg PO HS NAILA Stop: 01/09/23 20:59 Aspirin (Aspirin 81 Mg Ectab) 81 mg PO DAILY NAILA Stop: 01/09/23 08:59 Last Admin: 12/10/22 08:40 Dose: 81 mg Carvedilol (Carvedilol 12.5 Mg Tab) 12.5 mg PO BID NAILA Stop: 01/09/23 08:59 Last Admin: 12/10/22 08:40 Dose: 12.5 mg Enoxaparin Sodium (Enoxaparin Inj 40 Mg/0.4 Ml Syr) 40 mg SQ QAM [facility] Stop: 01/09/23 08:59 Last Admin: 12/10/22 08:40 Dose: 40 mg Lactated Ringer's (Lr) 1,000 mls @ 50 mls/hr IV .Q20H ONE Stop: 12/10/22 17:11 Last Admin: 12/09/22 21:31 Dose: 50 mls/hr Promethazine HCl 12.5 mg/ (Sodium Chloride) 50.5 mls @ 202 mls/hr IV Q6H PRN PRN Reason: Nausea And Vomiting Stop: 01/08/23 23:43 Lactobacillus Acidophilus (Advanced Probiotic 1250 Mg Capsule) 2 cap PO DAILY [facility] Stop: 01/09/23 08:59 Last Admin: 12/10/22 08:39 Dose: Not Given Levothyroxine Sodium (Levothyroxine Sodium 25 Mcg Tablet) 25 mcg PO DAILYBB [facility] Stop: 01/09/23 06:29 Last Admin: 12/10/22 06:08 Dose: 25 mcg Lorazepam (Lorazepam 0.5 Mg Tab) 0.5 mg PO TID PRN PRN Reason: Anxiety Stop: 01/08/23 23:43 Morphine Sulfate (Morphine Sulfate 4 Mg/Ml 1 Ml Carp\Vial) 4 mg IV Q4H PRN PRN Reason: Pain Stop: 12/23/22 23:43 Multivitamins/Minerals (Cerovite Adv Formula Tab) 1 tab PO DAILY [facility] Stop: 01/09/23 08:59 Last Admin: 12/10/22 08:41 Dose: Not Given Nitroglycerin (Nitroglycerin Sl 0.4 Mg/Tab Tab) 0.4 mg SL UD PRN PRN Reason: Chest Pain Stop: 01/08/23 23:43 Tramadol HCl (Tramadol Hcl 50 Mg Tablet) 25 - 50 mg PO Q4H PRN PRN Reason: Pain Stop: 01/08/23 23:43
--- NOTE | 2022-12-10 10:09 | Cardiology Consultation ---
Date of Consultation December 10, 2022 Assessment & Plan (1) Chest pain at rest: (2) Cardiac pacemaker: (3) SSS (sick sinus syndrome): (4) Hypertension: Plan 77-year-old female admitted with resting chest discomfort, atypical by history. Blood pressure notably hypertensive (160/90) on presentation, improving to low normal at the time of consultation. EKG without acute change. High-sensitivity troponin I negative x3. Telemetry benign. Chest x-ray and chest CTA without acute cardiopulmonary findings. Resting echocardiography pending. RECOMMENDATIONS: 1. Refer for resting echocardiography 2. If #1 is okay, proceed with outpatient Lexiscan nuclear stress testing at [facility] next week 3. Consider addition of PPI, GI workup, referral for EGD Supervising Physician Co-Signing Physician Notes Patient seen examined the bedside. Describes epigastric and substernal chest discomfort occurring 12/09/2022 at 5pm. Symptoms lasted 15 minutes. Spontaneously resolved. She came to the ER for further evaluation and treatment. Cardiac enzymes negative. No ischemic ECG changes. Preliminary review of bedside 2D transthoracic echocardiogram reveals normal wall motion. Patient denies palpitations, lightheadedness, dizziness, syncope, or near syncope. No orthopnea, PND, or weight gain. Reports dependent pedal and ankle edema dating back several years. Symptoms attributed to venous insufficiency. PE: VSS. Gen: NAD, AAO x3. Heart: Regular rhythm. no murmur. Lungs: clear: B/L, no R/R/W. ABD: + Periumbilical abdominal bruit Ext: no edema. A/P: Agree with above PA-C history, physical exam, assessment and plan. Recommend further ischemic evaluation with Lexiscan nuclear stress test. Patient unlikely to achieve target heart rate due to 100% atrial pacing. Abdominal aortic duplex will be performed for further evaluation abdominal bruit. Recommendations discussed with patient and at bedside. They are agreeable to outpatient follow-up. Thank you for allow me to participate in the care of your patient. History of Present Illness Reason for Consultation: Chest pain Requesting Physician: Kathy Attending Physician: Eva History of Present Illness Mrs. India Johnston is a very pleasant 77-year-old female who is being seen today at the request of Dr. Chavez, evaluation of chest pain. The patient's , Ty Johnston, was present at the bedside for the entire consultation. Patient describes an episode of recurrent chest pain that occurred at rest yesterday around 5 PM prior to dinner. She notes that her was away visiting his brother in [place] recently and she had not been eating well as she did not want to cook for 1 person. Patient describes pain between the breasts that went straight through to the back. She describes it as "a charley horse, like a muscle tightening." She notes a funny feeling up both sides of the neck and also feeling hot at that time. No diaphoresis, shortness of breath, nausea, reflux. The episode lasted for approximately 10 minutes and resolved spontaneously. She notes always taking aspirin when she has these episodes, last occurring a few months ago. Patient notes that the episodes occur only at rest, primarily at nighttime. They are not related to activity. She notes never previously experiencing the chest pain with activity. She denies activity related chest pain, increased shortness of breath, or change in exercise tolerance. She notes being active in and around the house, cleaning, cooking, etc. without significant difficulty. She describes having had this discomfort intermittently for years and notes previously being seen in the ER in [place] with negative work-ups obtained. Her believes that it is similar to what lead to prior diagnostic cardiac catheterization in 2008 however the patient feels this this particularly episode was different. Past Medical and Surgical History: Hypertensive cardiovascular disease without obstructive coronary artery disease via cardiac catheterization on April 23, 2009. Renal artery stenosis status post stenting Status post dual-chamber pacemaker implantation in 2018 for symptomatic bradycardia. Hypertension Dyslipidemia Mitral regurgitation Ankylosing spondylitis Chart history rheumatoid arthritis History of giant cell arteritis History of cervical cancer Hiatal hernia and reflux, status post 08/19/2007 laparoscopic lopez fundoplication Varicosities Cataract extraction bilaterally Knee surgery Diagnostic laparoscopy Rectocele repair Hysterectomy Right ankle surgery Tubal ligation Family History: Mother at 94. Father at 80, bone cancer. Sister with CVA. Sister with dementia. 1 brother with prostate cancer. 1 brother with lung cancer. Social History: Non-smoker. No significant alcohol. No illegal drug use. 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 . Aracely Crawfordan Allergies Allergy/AdvReac Type Severity Reaction Status Date / Time hydrochlorothiazide Allergy Unknown Verified 12/09/22 19:15 metoprolol Allergy Unknown Verified 12/09/22 19:15 naproxen [From Naprosyn] Allergy Unknown Verified 12/09/22 19:15 Home Medications Medication Instructions Recorded Confirmed Type calcium carbonate 600 mg-vitamin 1 cap PO DAILY 04/28/19 12/09/22 History D3 5 mcg (200 unit) capsule multivit with 1 tab PO DAILY 04/28/19 12/09/22 History [id number]-ZV-lutein 8 mg iron-400 mcg-300 mcg tablet (Centrum Silver Women) levothyroxine 25 mcg tablet 25 mcg PO DAILY 06/13/19 12/09/22 History (Synthroid) amlodipine 5 mg tablet 5 mg PO DAILY 10/31/20 12/09/22 History carvedilol 12.5 mg tablet 12.5 mg PO BID 10/31/20 12/09/22 History aspirin 81 mg tablet,delayed 81 mg PO DAILY 12/09/22 12/09/22 History release celecoxib 200 mg capsule 200 mg PO DAILY PRN Pain 12/09/22 12/09/22 History lactobacillus combination no.4 3 0 mmu cells PO DAILY 12/09/22 12/09/22 History billion cell capsule (Probiotic) Patient History Medical History Cardiac pacemaker Cervical cancer H/O varicose veins History of cervical cancer Hot flashes, menopausal Hot flashes, menopausal Hypertension Mitral valve regurgitation Osteoarthritis of midtarsal joint of right foot SSS (sick sinus syndrome) Varicose veins of both legs with edema Surgical History H/O knee surgery H/O laparoscopy Diagnostic H/O rectocele repair H/O: hysterectomy History of ankle surgery History of tubal ligation S/P placement of cardiac pacemaker Family History Father Colorectal cancer Brother Lung cancer Prostate cancer Uncle Lung cancer Paternal Other Hypertension Denies family history of Ovarian cancer Breast cancer Social History Smoking Status: Never smoker Do You Dip or Chew Tobacco: No; Hx Alcohol Use: No Hx Substance Use: No Preferred Language: Djiboutian Cad Application Support Specialist Required: No Beliefs That Will Affect Care: None Current Living Situation: Spouse Feels Safe at Home: Yes Assistive Devices: None Review of Systems Review of Systems: Complete Review of Systems: Constitutional: No change in weight. No night sweats. HEENT: See above. No amaurosis fugax. Pulmonary: No history of asthma or COPD. No history of PE. Cardiac: See above. GI/Abd: No dysphagia. No melana or hematochezia. No liver problems. Kidney: See above. Denies claudication, AAA, or carotid artery disease. Hematologic: No coagulation disorder, anemia, or abnormal bleeding. Musculoskeletal: Arthritis. Skin: No rash. Neurologic: No history of TIA, CVA, or seizure. Female : See above. Endocrine: No history of diabetes. Complete Review of Systems is as stated above, negative, or noncontributory. Physical Exam Physical Exam: General: A&Ox3. NAD. HENT: Normocephalic. Atraumatic. Eyes: PER. Conjunctiva pink, sclera clear. Neck: No carotid bruits. No JVD. No HJR. Chest: Left subclavian pacemaker Heart: RRR. Soft apical systolic murmur. No rub. No gallop. PMI is nondisplaced. Lungs: Clear to auscultation. Abdomen: +BS. Soft. Nontender. No masses or organomegaly. Extremities: + Right ankle surgical scar. Varicosities. No clubbing, cyanosis, or edema. Limited neurological examination is without focal deficits. Pulses: radial=2/4, posterior tibial=1-2/4. Results & Data Vital Signs (Past 12 Hours) Vital Signs Temp Pulse Pulse Resp BP BP Pulse Ox 12/10/22 08:00 36.5 C 74 16 108/74 97 12/10/22 03:44 36.5 C 63 18 123/74 95 12/09/22 23:50 97 H 12/09/22 23:50 36.6 C 60 15 165/80 H 97 12/09/22 23:44 36.6 C 60 15 165/80 H 97 12/09/22 22:30 60 13 137/75 98 O2 Del Method 12/10/22 08:00 Room Air 12/10/22 03:44 Room Air 12/09/22 23:50 12/09/22 23:50 Room Air 12/09/22 23:44 Room Air 12/09/22 22:30 Laboratory Results Cardiac Enzymes 12/09/22 12/09/22 12/10/22 Range/Units 18:42 20:03 05:27 AST 24 (13-39) U/L Troponin I High Sens 7.4 7.5 8.5 (0-14) pg/ml Coagulation 12/09/22 12/10/22 Range/Units 18:42 05:27 PT 10.9 (9.0-12.0) Seconds APTT 27.9 29.1 (21.0-31.0) Seconds Lipids 12/10/22 Range/Units 05:27 Triglycerides 49 (0-150) mg/dl Cholesterol 150 (0-200) mg/dl HDL Cholesterol 62 mg/dl Cholesterol/HDL Ratio 2.4 (0-5) CBC 12/09/22 12/10/22 Range/Units 18:42 05:27 WBC 8.41 6.13 (4.8-10.8) K/ul RBC 4.24 4.03 L (4.20-5.40) M/uL Hgb 13.1 12.4 (12.0-16.0) g/dl Hct 37.9 35.9 L (37.0-47.0) % Plt Count 220 192 (130-400) K/uL Neut # (Auto) 4.90 3.18 (1.40-6.50) K/uL Lymph # (Auto) 2.47 1.97 (1.2-3.4) K/uL Ponce # (Auto) 0.69 H 0.62 H (0.11-0.59) K/uL Eos # (Auto) 0.26 0.27 (0-0.50) K/uL Baso # (Auto) 0.07 0.07 (0-0.2) K/uL Comprehensive Metabolic Panel 12/09/22 12/10/22 Range/Units 18:42 05:27 Sodium 140 141 (136-145) mmol/L Potassium 3.7 3.5 (3.5-5.1) mmol/L Chloride 104 107 (98-107) mmol/L Carbon Dioxide 28 28 (21-32) mmol/L BUN 13 12 (6-23) mg/dl Creatinine 0.88 0.66 (0.6-1.2) mg/dl Glucose 124 H 79 (70-99(Fasting)) mg/dl Calcium 9.5 8.4 L (8.6-10.3) mg/dl AST 24 (13-39) U/L ALT 13 (7-52) U/L Alkaline Phosphatase 59 (34-104) U/L Total Protein 6.7 (6.0-8.3) gm/dl Albumin 4.0 (3.4-5.0) gm/dl Intake and Output 12/09/22 12/10/22 12/10/22 22:59 06:59 14:59 Other: # Unmeasured Voids 1 Weight 87 kg Weight Measurement Method Chair Scale Diagnostic Findings June 19, 2022 TTE Interpretation Summary: The left ventricular cavity size is normal. The LV wall thickness is borderline increased (concentric). The basal septum is thickened and angulated consistent with sigmoid septum. The left ventricular wall motion is normal. The qualitative LV ejection fraction is 60- 64% (normal). Mild aortic valve sclerosis is present. There is trace mitral insufficiency Mild tricuspid regurgitation is present. Mild pulmonary hypertension is present. The estimated pulmonary artery systolic pressure is 35- 40mm Hg. [employer] pacemaker interrogation on November 21, 2022 personally reviewed. Appropriate function. Remaining longevity: 9.2 years. Atrial paced 99.8%. Time in AT/AF: Less than 0.1%, a total of 86 minutes from September 17, 2021 to November 21, 2022. Chest x-ray without acute disease Chest CTA without acute cardiopulmonary disease. + Coronary artery calcifications and mild atherosclerotic disease of aorta, without aneurysm or dissection. + Minimal bilateral lower lobe atelectasis. EKG atrial paced, without acute ST segment changes. High-sensitivity troponin I negative x3. Continuous telemetry monitoring revealed an atrial paced rhythm, 60s. CT head with chronic changes, without acute intracranial hemorrhage or space- occupying lesion.
--- NOTE | 2022-12-10 15:08 | Discharge Summary ---
Date of Service December 10, 2022 Admission HPI Per Admitting Provider This is a 77-year-old female with PMH of sick sinus syndrome status post pacemaker placement, renovascular hypertension s/p right artery angioplasty in 2005, moderate mitral insufficiency, ankylosing spondylitis, hypothyroidism and other medical problems listed below who presents with chest pain that started this evening prior to arrival. States that pain developed around 530 this evening while she was sitting still and describes pain as central discomfort that radiated towards her back and felt like a charley horse/cramp and resolved after 30 minutes. [place] a sense of warmth during episode of pain but denies any diaphoresis, nausea, vomiting, near syncope or shortness of breath. Had 1 similar episode this past winter but not since then. Did take an extra aspirin at home and came into ED for further evaluation at which point chest pain had resolved but patient still feels residually fatigued and generally weak. Denies any fever, chills, lightheadedness, headache, wheezing, shortness of breath, nausea, vomiting, dumping dysuria, diarrhea constipation. No recent medication changes. Per chart review, normal coronary angiography and 2009. Also had a recent pacemaker interrogation with brief episodes of atrial fibrillation but is being monitored by cardiology for any future or prolonged episodes of PAF and will consider anticoagulation at that time. Follows with Dr. Adan of [facility] cardiology and primary care is based in [place]. Admission Exam Per Admitting Provider General Appearance:WD/WN, vitals as above, NAD, sitting up in bed, pleasant, conversing easily Head: normocephalic, atraumatic Eyes:normal inspection, PERRL, conjunctivae normal, anicteric sclerae ENT: external ear and nose normal, oropharynx normal Neck: normal visual inspection, trachea midline, no thyromegaly Respiratory:normal respiratory effort, lungs clear to auscultation, no wheeze, rales, rhonchi. No accessory muscle use Cardiovascular: regular rate, rhythm, no murmur, normal peripheral pulses. Vessels: no JVD Chest: normal inspection of chest Abdomen/GI: normal bowel sounds, soft, nontender, no hepatosplenomegaly Extremities/Musculoskeletal: no cyanosis or clubbing, extremities motor strength 5/5. + Trace edema R>L BLE 2/2 chronic venous changes Neurologic: PERRL, EOMI, accommodation nl, no face palsy, no dysarthria, CN's II-XI intact bilaterally and moves all extremities Psychiatric:A+Ox3, euthymic affect Skin: no rashes, normal color, warm/dry Principal Diagnosis Chest pain Hx of SSS s/p pacemaker Hypertension Discharge Exam General Appearance:WD/WN, F in NAD, sitting up in bed, pleasant, conversing easily Head: normocephalic, atraumatic Eyes:normal inspection, PERRL, conjunctivae normal, anicteric sclerae ENT: oropharynx normal Neck: normal visual inspection Respiratory:normal respiratory effort, lungs clear to auscultation, no wheeze, rales, rhonchi. Cardiovascular: regular rate, rhythm, no murmur, normal peripheral pulses. Vessels: no JVD Chest: normal inspection of chest Abdomen/GI: normal bowel sounds, soft, nontender Extremities/Musculoskeletal: moves extremities Neurologic: PERRL, EOMI, no face palsy, speech fluent, moves all extremities Psychiatric:A+Ox3, euthymic affect Skin: no rashes, normal color, warm/dry Discharge Data Allergies Allergy/AdvReac Type Severity Reaction Status Date / Time hydrochlorothiazide Allergy Unknown Verified 12/09/22 19:15 metoprolol Allergy Unknown Verified 12/09/22 19:15 naproxen [From Naprosyn] Allergy Unknown Verified 12/09/22 19:15 Consultations 12/09/22 19:49 ED Decision to Admit Stat 12/09/22 23:44 Consult Cardiology Routine Ordered Studies 12/09/22 21:00 CT angio chest dissec wo/w con Stat FINDINGS: Pulmonary arteries: Unremarkable. No pulmonary embolism. Normal visualized pulmonary arteries with normal enhancement. Aorta: Mild atherosclerotic disease of aorta with no aneurysm or dissection. Lungs: Minimal bilateral lower lobe atelectasis otherwise normal lung parenchyma. No mass. Pleural space: Unremarkable. No significant effusion. No pneumothorax. Heart: Borderline cardiomegaly with mild coronary artery calcifications. No significant pericardial effusion. No evidence of RV dysfunction. Bones/joints: No acute fracture. No dislocation. Soft tissues: Unremarkable. Lymph nodes: Unremarkable. No enlarged lymph nodes. Tubes, lines and devices: Left-sided pacemaker in place. Other findings: Multilevel degenerative disease of the spine. IMPRESSION: 1. No pulmonary embolus or aortic dissection. 2. Mild bilateral lower lobe atelectasis otherwise no acute cardiopulmonary disease. 3. No pleural effusion or pneumothorax. CT head/brain wo con Stat FINDINGS: Brain: Mild generalized brain atrophy. Slight decreased attenuation within the deep white matter compatible with mild microangiopathic white matter disease. No hemorrhage. Ventricles: Unremarkable. No ventriculomegaly. Bones/joints: Unremarkable. No acute fracture. Soft tissues: Unremarkable. Sinuses: Unremarkable as visualized. No acute sinusitis. Mastoid air cells: Unremarkable as visualized. No mastoid effusion. IMPRESSION: Chronic changes as described. No acute intracranial hemorrhage or space-occupying lesion. Hospital Course (1) Chest pain: (2) SSS (sick sinus syndrome): (3) Cardiac pacemaker: (4) Hypertension: (5) Mitral valve regurgitation: (6) Hypothyroidism: Plan This is a 77-year-old female with PMH of sick sinus syndrome status post pacemaker placement, renovascular hypertension s/p right artery angioplasty in 2005, moderate mitral insufficiency, ankylosing spondylitis, hypothyroidism and other medical problems listed below who presents with chest pain that started this evening prior to arrival. In addition, patient complaining of headache symptoms. CT head: Chronic changes as described. No acute intracranial hemorrhage or space-occupying lesion. CT chest: 1. No pulmonary embolus or aortic dissection. 2. Mild bilateral lower lobe atelectasis otherwise no acute cardiopulmonary disease. 3. No pleural effusion or pneumothorax. FINAL ASSESSMENT AND PLAN as follows : Chest pain rule out ACS SSS sp PPM History PAF as per records Hypertension, elevated upon arrival at the ER hx trace mitral regurgitation on recent outpatient echo from 2021 Pulmonary hypertension Cardiology consulted and echo obtained Troponin negative No ischemic ECG changes Preliminary review of bedside 2D transthoracic echocardiogram reveals normal wall motion. Currently pt is feeling well and denies any more chest pain. Recommend further ischemic evaluation with Lexiscan nuclear stress test. Patient unlikely to achieve target heart rate due to 100% atrial pacing. Abdomi nal aortic duplex will be performed for further evaluation abdominal bruit.- Both tests can be performed as outpt. Pt agreeable with the plan. PCP follow up also arranged. GERD status post surgery Renal artery stenosis status post stent placement Hyperglycemia secondary to prediabetes, hemoglobin A1c noted to be 5.9 Hypothyroidism, euthyroid as of today's TSH History ankylosing spondylitis Total Time Total Time Spent Total Time Spent (In Minutes): 40 Discharge Plan Discharge Items Patient Disposition: Home - Self-Care Reason For Visit: CP Discharge Diagnosis: Chest pain Hx of SSS s/p pacemaker Hypertension Activity: Per Instructions section Non-emergency contact: Primary Care Provider and [employer] Supervisor Call non-emergency contact if: you have any medication questions and your symptoms worsen Follow-up/Referrals: Ike Dutta DO [Primary Care Provider] - 12/19/22 3:00 pm Diet: Heart Healthy Addtl Attending Provider Instructions: Follow-up with primary care physician, the appointment was scheduled for you for December 19. Follow-up with cardiology, plan for stress test, and abdominal aortic ultrasound. You will be contacted about the appointment. Pending Studies at Discharge: No Stand-Alone Forms: My [facility] [employer], Smoking Cessation Medications and DC Order Prescriptions: Continued calcium carbonate-vitamin D3 600 mg calcium- 200 unit capsule 1 cap PO DAILY Centrum Silver Women 8 mg iron-400 mcg-300 mcg tablet 1 tab PO DAILY levothyroxine [Synthroid] 25 mcg tablet 25 mcg PO DAILY carvedilol 12.5 mg tablet 12.5 mg PO BID Rx Instructions: must administer with a meal/food amlodipine 5 mg tablet 5 mg PO DAILY celecoxib 200 mg capsule 200 mg PO DAILY PRN (Reason: Pain) aspirin [Aspir-81] 81 mg Tablet,Delayed Release (Dr/Ec) 81 mg PO DAILY Probiotic 3 billion cell Capsule 0 mmu cells PO DAILY Rx Instructions: administer with a meal Discharge Orders: Discharge Order (Routine); Ordered 12/10/22 Ordered By: Honorio Velasquez Admission Data Admit Date/Time: 12/09/22 22:31 Attending Provider: Honorio Velasquez Admit Provider: Pete Chavez Primary Care Provider: Ike Dutta Other Providers: Pete Chavez ; Jennifer Marin ; Jona Abdalla ; Richard Adan ; Haris Cruz ; Darshan Dowling ; Jonel Terrazas ; Symone Ureña ; Vidya Rodrigues ; Jennifer Carbajla ; Jorge Summers ; Angeli Haji
[2022-12-10] MEDS ORDERED: amLODIPine BESYLATE 5 MG TAB PO SCH (21:00)
--- NOTE | 2022-12-10 23:19 | Electrocardiogram Report ---
Test Reason : Blood Pressure : / mmHG Vent. Rate : 090 BPM Atrial Rate : 090 BPM P-R Int : 268 ms QRS Dur : 120 ms QT Int : 380 ms P-R-T Axes : 049 -74 -01 degrees QTc Int : 464 ms Atrial-paced rhythm with prolonged AV conduction Right bundle branch block Left anterior fascicular block Bifascicular block Septal infarct , age undetermined Abnormal ECG No previous ECGs available Confirmed by Lewis Rosa ([id number]) on 12/10/2022 11:18:36 PM Referred By: REFERRED SELF Confirmed By:Lewis Rosa
--- NOTE | 2022-12-11 05:29 | Electrocardiogram Report ---
Test Reason : Blood Pressure : / mmHG Vent. Rate : 062 BPM Atrial Rate : 062 BPM P-R Int : 264 ms QRS Dur : 120 ms QT Int : 448 ms P-R-T Axes : 072 -87 000 degrees QTc Int : 454 ms Atrial-paced rhythm with prolonged AV conduction Low voltage QRS Right bundle branch block Left anterior fascicular block Bifascicular block Possible Anterior infarct Abnormal ECG When compared with ECG of 09-DEC-2022 18:34, Questionable change in initial forces of Anteroseptal leads Confirmed by Lewis Rosa ([id number]) on 12/11/2022 5:29:00 AM Referred By: REFERRED SELF Confirmed By:Lewis Rosa
== END 2022-12-10 16:02 | disposition home or self-care (01) ==
LOC: 4W 18:31 → ED 18:31 → 4W 23:44